=== PATIENT | male | born 1955 | race American Indian/Alaskan Native ===

== ENCOUNTER 2020-05-09 08:46 | Emergency (ER) | payer OTHER ==
--- NOTE | 2020-05-09 09:28 | Emergency Department Report ---
ED General Adult HPI - General Chief complaint: Extremity Injury, Upper Stated complaint: BACK/RT SIDE PAIN Time Seen by Provider: 05/09/20 09:07 Source: patient Mode of arrival: Ambulatory Limitations: No Limitations - History of Present Illness Initial comments: 65-year-old -[place] male patient presents with complaints of right shoulder pain x1 week. He denies any injury or chest pain/shortness of breath, cough, or known past medical history. Patient states pain does not worsen with movement of the shoulder and is constant. He rates the pain as a 9/10 in severity. He reports Advil is not helping with the pain. No numbness/tingling/ weakness in his arm, however patient states the pain does radiate down his right arm - Related Data Previous Rx's Medication Instructions Recorded Last Taken Type Diclofenac Sodium 75 mg PO BID PRN 7 Days #14 05/09/20 Unknown Rx tablet.dr PeacockAMOL [Robaxin TAB] 750 mg PO Q8H PRN #20 tablet 05/09/20 Unknown Rx Allergies Allergy/AdvReac Type Severity Reaction Status Date / Time No Known Allergies Allergy Unverified 05/09/20 09:04 ED Review of Systems ROS: Stated complaint: BACK/RT SIDE PAIN Other details as noted in HPI Constitutional: denies: chills, diaphoresis, fever, malaise Respiratory: denies: shortness of breath, SOB with exertion Cardiovascular: denies: chest pain, palpitations Gastrointestinal: denies: abdominal pain, nausea, vomiting Musculoskeletal: arthralgia. denies: back pain, joint swelling Neurological: denies: headache, numbness, paresthesias, abnormal gait ED Past Medical Hx - Past Medical History Previous Medical History?: No - Surgical History Past Surgical History?: Yes Additional Surgical History: Left knee - Medications Home Medications: Home Medications Medication Instructions Recorded Confirmed Last Taken Type Diclofenac Sodium 75 mg PO BID PRN 7 Days #14 05/09/20 Unknown Rx tablet.dr PeacockAMOL [Robaxin TAB] 750 mg PO Q8H PRN #20 tablet 05/09/20 Unknown Rx ED Physical Exam - General Limitations: No Limitations General appearance: alert, in no apparent distress - Head Head exam: Present: atraumatic, normocephalic - Eye Eye exam: Present: normal appearance. Absent: scleral icterus - Neck Neck exam: Present: normal inspection, full ROM. Absent: tenderness - Respiratory Respiratory exam: Present: normal lung sounds bilaterally. Absent: respiratory distress, chest wall tenderness - Cardiovascular Cardiovascular Exam: Present: regular rate, normal rhythm - Back Exam Back exam: Present: full ROM, other (Tenderness to palpation noted of posterior right upper back and scapula without obvious deformity noted; pain does not worsen with passive or active range of motion; no skin changes noted) - Neurological Exam Neurological exam: Present: alert, oriented X3, normal gait - Psychiatric Psychiatric exam: Present: normal affect, normal mood - Skin Skin exam: Present: warm, dry, intact, normal color. Absent: rash ED Course Vital Signs 05/09/20 05/09/20 09:02 11:56 Temperature 98.2 F Pulse Rate 107 H 92 H Respiratory 20 Rate Blood Pressure 132/87 O2 Sat by Pulse 99 Oximetry ED Medical Decision Making - Lab Data Result diagrams: 05/09/20 10:53 05/09/20 10:53 - EKG Data EKG shows normal: sinus rhythm Rate: tachycardia (107) - EKG Data Interpretation: normal EKG - Radiology Data Radiology results: report reviewed CHEST PA AND LATERAL VIEWS INDICATION: right posterior back pain. COMPARISON: None FINDINGS: Support devices: None Heart: Normal Lungs/Pleura: No acute pulmonary or pleural findings. IMPRESSION: 1. No active disease. - Medical Decision Making 65-year-old -[place] male patient presents with complaints of right shoulder pain x1 week. He denies any injury or chest pain/shortness of breath, cough, or known past medical history. Patient states pain does not worsen with movement of the shoulder and is constant. He rates the pain as a 9/10 in severity. He reports Advil is not helping with the pain. No numbness/tingling/weakness in his arm, however patient states the pain does radiate down his right arm Chest x-ray is normal. CBC, CMP, troponin are normal. Will treat for muscle strain with NSAIDs and muscle relaxers. Recommend follow-up with primary care in 3 days. His vitals are normal, he is well-appearing, he is stable for discharge home. Discussed signs and symptoms that should prompt immediate return to the emergency department in detail patient verbalized understanding. Critical care attestation.: If time is entered above; I have spent that time in minutes in the direct care of this critically ill patient, excluding procedure time. ED Disposition Clinical Impression: Right shoulder pain Qualifiers: Chronicity: acute Qualified Code(s): M25.511 - Pain in right shoulder Disposition: - TO HOME OR SELFCARE Is pt being admited?: No Condition: Stable Instructions: Shoulder Pain Prescriptions: Diclofenac Sodium 75 mg PO BID PRN 7 Days #14 tablet. PRN Reason: pain methOCARBAMOL [Robaxin TAB] 750 mg PO Q8H PRN #20 tablet PRN Reason: Muscle spasm/tightness Referrals: [facility] [Provider Group] - 2-3 Days
--- NOTE | 2020-05-09 10:00 | XRay Report ---
CHEST PA AND LATERAL VIEWS INDICATION: right posterior back pain. COMPARISON: None FINDINGS: Support devices: None Heart: Normal Lungs/Pleura: No acute pulmonary or pleural findings. IMPRESSION: 1. No active disease. Signer Name: Bhavik Pennington MD Signed: 05/09/2020 9:56 AM Workstation Name: [id number]
[2020-05-09 11:08] LABS: Basophils # (Auto) 0.1 K/mm3 (0.0-0.1); Basophils % (Auto) 0.9 % (0.0-1.8); Eosinophils # (Auto) 0.1 K/mm3 (0.0-0.4); Eosinophils % (Auto) 0.9 % (0.0-4.3); Hematocrit 45.5 % (35.5-45.6); Hemoglobin 15.8 gm/dl (11.8-15.2); Lymphocytes # (Auto) 1.3 K/mm3 (1.2-5.4); Lymphocytes % (Auto) 20.4 % (13.4-35.0); Mean Corpuscular HGB Conc 35 % (32-34); Mean Corpuscular Volume 85 fl (84-94); Monocytes # (Auto) 0.4 K/mm3 (0.0-0.8); Monocytes % (Auto) 6.2 % (0.0-7.3); Platelet Count 243 K/mm3 (140-440); Red Blood Count 5.34 M/mm3 (3.65-5.03); Red Cell Distribution Width 14.2 % (13.2-15.2)
[2020-05-09 11:25] VITALS: BP 132/87
[2020-05-09 11:32] LABS: Alanine Aminotransferase 15 units/L (7-56); Albumin 4.7 g/dL (3.9-5); BUN/Creatinine Ratio 13; Blood Urea Nitrogen 15 mg/dL (9-20); Calcium 9.7 mg/dL (8.4-10.2); Hemolysis Index 2
== END 2020-05-09 11:58 | disposition home or self-care (01) ==
LOC: ED 08:46
DX: M25.511 Pain in right shoulder (principal); Z98.890 Other specified postprocedural states; Z79.899 Other long term (current) drug therapy
CPT/HCPCS: 36415; 71046; 80053; 84484; 85025; 93005